=== PATIENT | female | born 1985 | race Caucasian/White ===

== ENCOUNTER 2021-07-06 10:24 | Inpatient (IN) | payer OTHER ==
[~2021-07-06] VITALS: Ht 139.7 cm; Wt 58.5 kg
--- NOTE | ~2021-07-06 | EMS ---
[address] [address] EMS Patient Care Report Name: PATO NATHAN Room #: PRE M.R.#: [id number] Admission: Attend Phys: Discharge: Date of : 87 Report #: [id number] THIS REPORT FOR: //name// Report Transmitted: 07/06/2021 09:59 EMS Care Summary [place], [place]/[facility] Incident [id number] @ 07/06/2021 09:53 Incident Location [address] [place] [address] Patient PATO JOEL Female, 36 Years 1985 Patient Address [address] [place] [address] Patient History None Reported, Patient Allergies No known allergies, Patient Medications None Reported, Chief Complaint SOB Disposition Transported No Lights/[place] Dispatch Reason Breathing Problem Transported To [facility] Narrative M528 dispatched for a 36 year old female conscious and breathing having SOB. 28 responds to the scene and finds the patient with P42 personnel. Patient acknowledges EMS presence is GCS 15, AAOx4. Patient has a patent airway and is having SOB with speaking 2 - 3 word sentences, Skin is pink warm and dry. [facility] [address] [place] [address] EMS Patient Care Report Name: PATO NATHAN Room #: PRE Brianna#: [id number] Admission: Attend Phys: Discharge: Date of : 87 Report #: [id number] Patient confirms that she has been exposed to COIVD19 and that her has been home sick for the past week. Patient is placed on the stretcher in the fowlers position and secured using seatbelts and rails. Patient is placed on Oxygen via NRB at 12LPM and patient is placed on the monitor to obtain VS. Once inside the ambulance transport is initiated to [facility]. IV access is established in the left antecubital using a 20G IV and secured with a venigard. 10 ML NS Is flushed. Assessment conducted. Patient is GCS 15, AAOx4. Patient has a patent airway is breathing adequately with strong regular radial pulses. Skin is pink warm and dry. HEENT are WNL. Pupils are PERRL. Trachea is midline with no JVD noted. Chest wall is stable and intact with symmetrical rise and fall. Lung sounds are noted to be diminished in the upper lobes with mild wheezes. Abdomen is soft and nontender with no distention or rigidity noted. Pelvis is stable and intact.CMSX4 present. Patient advises that the Oxygen is helping. Arrival at the receiving facility patient condition is unchanged and stable. Patient is offloaded and taken to ED room 1. RN is given report and transfer of care is completed. Signatures are obtained and M528 returns to service after [place]. Initial Vitals @10:13P: 68,R: 20,BP: 92/57,Pain: 0/10,GCS: 15,CO: 1,SpO2: 100,Revised Trauma: 12, @10:06P: 91,R: 22,BP: 93/56,Pain: 0/10,GCS: 15,CO: 2,SpO2: 88,Revised Trauma: 12, Assessments @10:04MENTAL:No Abnormalities,SKIN:No Abnormalities,HEENT:Head/Face: No Abnormalities,Eyes: No Abnormalities,Neck/Airway: No Abnormalities,LUNG SOUNDS:General: No Abnormalities,Left Upper: No Abnormalities,Right Upper: No Abnormalities,Left Lower: No Abnormalities,Right Lower: No Abnormalities,ABDOMEN:General: No Abnormalities,Left Upper: No Abnormalities,Right Upper: No Abnormalities,Left Lower: No Abnormalities,Right Lower: No Abnormalities,PELVIS//GI:No Abnormalities,EXTREMITIES:Left Arm: No Abnormalities,Right Arm: No Abnormalities,Left Leg: No Abnormalities,Right Leg: No Abnormalities,PULSE:Radial: 2+ Normal,NEURO:No Abnormalities, Impression COVID-19 - Exposure to confirmed patient Procedures @10:08 Oxygen FlowRate: 12 Device: Non Re-breather Mask (NRB) Response: UnchangedSucceeded @10:10 IV Therapy - Saline Lock 10cc (20 ga) Site: Antecubital-Left Response: UnchangedSucceeded [address] [address] EMS Patient Care Report Name: PATO NATHAN Room #: PRE M.R.#: [id number] Admission: Attend Phys: Discharge: Date of : 87 Report #: [id number] @10:04 ALS Assessment Response: UnchangedSucceeded Timeline 09:51,Call Received 09:51,Dispatch Notified 09:53,Dispatched 09:54,En Route 10:02,On Scene 10:04,At Patient 10:04,ALS Assessment,Response: UnchangedSucceeded, 10:06,BP: 93/56 M,PULSE: 91,RR: 22 R,SPO2: 88 Ox,ETCO2: ,BG: ,PAIN: 0,GCS: 15, 10:08,Oxygen FlowRate: 12 Device: Non Re-breather Mask (NRB) Response: UnchangedSucceeded, 10:10,Depart Scene 10:10,IV Therapy - Saline Lock 10cc 20 ga Site: Antecubital-Left,Response: UnchangedSucceeded, 10:13,BP: 92/57 M,PULSE: 68,RR: 20 R,SPO2: 100 Ox,ETCO2: ,BG: ,PAIN: 0,GCS: 15, 10:19,At Destination 10:37,Call Closed Disclaimer v1.1 Copyright 2020 [employer] This EMS Care Summary contains data elements from the applicable legal record (which may be displayed differently). It is designed to provide pertinent information for the following purposes: continuity of care, clinical quality, and state data reporting. The complete legal record is available to ED staff and administrators of the receiving hospital in [employer]'s Patient Tracker. All data is provided "as is."
[2021-07-06 10:25] VITALS: BP 90/55
[2021-07-06 10:49] LABS: ABSOLUTE NEUTROPHILS 2.9 thou/uL (1.4-8.2); BASOPHILS 0.2 % (0.0-2.0); EOSINOPHILS 0.6 % (0.0-3.0); HEMATOCRIT 32.2 % (37.0-47.0); HEMOGLOBIN 10.4 gm/dL (12.0-15.0); LYMPHOCYTES 20.3 % (24.0-44.0); MCH 21.5 pg (26.0-34.0); MCHC 32.2 g/dL (28.0-37.0); MCV 66.9 fL (80.0-100.0); MONOCYTES 8.3 % (1.0-8.0); PLATELET COUNT 244 thou/uL (150-400); POLYS 70.6 % (36.0-66.0); RBC 4.81 mil/uL (4.20-5.00); RDW 19.2 % (10.5-14.5)
[2021-07-06 11:33] LABS: ANISOCYTOSIS 2+; MICROCYTES 2+; OVALOCYTES 1+
[2021-07-06 11:34] LABS: HYPOCHROMASIA 2+
[2021-07-06 11:36] LABS: CALCIUM 8.2 mg/dL (8.5-10.1); CREATININE 0.5 mg/dL (0.6-1.0); POTASSIUM 3.4 mmol/L (3.5-5.1)
[2021-07-06 11:43] LABS: ALBUMIN 3.1 g/dL (3.4-5.0); MAGNESIUM 2.5 mg/dL (1.8-2.4); TOTAL BILIRUBIN 0.2 mg/dL (0.2-1.0); TOTAL PROTEIN 7.1 g/dL (6.4-8.2)
--- NOTE | 2021-07-06 15:41 | EKG ---
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: SOHEILA : 1985 Requested By: Chandana Saha Order Number: [id number] : Micah Hernandez Measurements Intervals [place] Rate: 70 P: 10 MT: 116 QRS: 27 QRSD: 66 T: 14 QT: 399 QTc: 431 Interpretive Statements Sinus rhythm Borderline short MT interval Baseline wander in lead(s) V3 No previous ECG available for comparison Electronically Signed On 07-06-2021 15:40:56 [employer]ODUCTION CONTROL PLANNER by Micah Hernandez [email or web address] <ELECTRONICALLY SIGNED> By: Micah Hernandez MD, [facility] 07/06/21 1540 1028 1028 Micah Hernandez MD, FACC /EPI
[2021-07-06 17:10] LABS: URINE BILIRUBIN NEGATIVE (Negative); URINE BLOOD 2+ (Negative); URINE CLARITY CLEAR; URINE COLOR YELLOW; URINE GLUCOSE-RANDOM* NEGATIVE (Negative); URINE KETONES 1+ (Negative); URINE LEUKOCYTES-REFLEX NEGATIVE (Negative); URINE PROTEIN (DIPSTICK) TRACE (Negative)
[2021-07-06 17:22] LABS: URINE NITRITE-REFLEX POSITIVE (Negative)
[2021-07-06 17:23] LABS: SQUAMOUS 4-10 Moderate /LPF (0-3)
[2021-07-06 17:24] LABS: BACTERIA-REFLEX 1-9 Few /HPF (None Seen); CASTS None Seen /LPF (None Seen); CRYSTALS None Seen /LPF (None Seen); URINE RBC 1-2 Rare /HPF (NONE SEEN); URINE WBC-REFLEX 0-5 Rare /HPF (0-5)
[2021-07-06 18:02] VITALS: BP 91/59
[2021-07-06 18:25] VITALS: BP 132/81
[2021-07-06 18:42] VITALS: BP 104/68
--- NOTE | 2021-07-06 23:57 | NUR ---
ADMISSION QUESTIONS COMPLETED. PT SPEAKS SOME KINYARWANDA. [employer] TRANSLATE UTILIZED FOR HELP WITH COMMUNICATION. PT STATED THAT HER LAST PERIOD WAS 2 MONTHS AGO, SHE TESTED HCG POSITIVE. NOTIFIED LUCIA, HE ORDERED A ULTRASOUND. NO BLEEDING OR UNEXPECTED FINDINGS. DR SALMERON CONSULTED.
[2021-07-07] VITALS (7 sets, daily range): BP systolic 86–104; BP diastolic 50–64
[2021-07-07 06:39] LABS: ABSOLUTE NEUTROPHILS 2.8 thou/uL (1.4-8.2); BASOPHILS 0.3 % (0.0-2.0); HEMATOCRIT 31.5 % (37.0-47.0); LYMPHOCYTES 16.5 % (24.0-44.0); MCH 21.5 pg (26.0-34.0); MCHC 31.8 g/dL (28.0-37.0); MCV 67.5 fL (80.0-100.0); MONOCYTES 11.1 % (1.0-8.0); PLATELET COUNT 274 thou/uL (150-400); POLYS 72.1 % (36.0-66.0); RBC 4.66 mil/uL (4.20-5.00); RDW 19.9 % (10.5-14.5); WBC 3.9 thou/uL (4.0-11.0)
[2021-07-07 07:00] LABS: D-DIMER 0.81 ug/mLFEU (0.19-0.50); INR 0.95; PROTIME 10.4 Seconds (10.5-12.1)
[2021-07-07 07:12] LABS: ALBUMIN 2.3 g/dL (3.4-5.0); ANION GAP 11 mmol/L (7-16); BUN 12 mg/dL (7-18); CALCIUM 7.1 mg/dL (8.5-10.1); CHLORIDE 110 mmol/L (98-107); CO2 20 mmol/L (21-32); CREATININE 0.5 mg/dL (0.6-1.0); DIRECT BILIRUBIN < 0.1 mg/dL (<0.1-0.2); GLUCOSE 108 mg/dL (74-106); PHOSPHORUS 2.5 mg/dL (2.5-4.9); POTASSIUM 3.8 mmol/L (3.5-5.1); SGOT 23 U/L (15-37); SGPT 19 U/L (30-65); SODIUM 141 mmol/L (136-145); TOTAL BILIRUBIN 0.1 mg/dL (0.2-1.0); TOTAL PROTEIN 5.9 g/dL (6.4-8.2)
--- NOTE | 2021-07-07 19:30 | NUR ---
ASSUMED PATIENT CARE AT 0700. A/O X4. GENERLIXED WEAKNESS. ON 2L/NC. BP ON LOW SIDE. WILL KEEPMONITOR.
[2021-07-08 02:06] LABS: HIV ANTIBODY Non Reactive (Non Reactive)
[2021-07-08 04:49] VITALS: BP 93/56
[2021-07-08 06:17] LABS: ALBUMIN 2.3 g/dL (3.4-5.0); ANION GAP 12 mmol/L (7-16); BUN 10 mg/dL (7-18); CALCIUM 7.6 mg/dL (8.5-10.1); CHLORIDE 109 mmol/L (98-107); CO2 20 mmol/L (21-32); CREATININE 0.5 mg/dL (0.6-1.0); DIRECT BILIRUBIN < 0.1 mg/dL (<0.1-0.2); GLUCOSE 89 mg/dL (74-106); PHOSPHORUS 2.8 mg/dL (2.5-4.9); POTASSIUM 3.4 mmol/L (3.5-5.1); SGOT 29 U/L (15-37); SGPT 28 U/L (30-65); SODIUM 141 mmol/L (136-145); TOTAL BILIRUBIN 0.1 mg/dL (0.2-1.0); TOTAL PROTEIN 5.5 g/dL (6.4-8.2)
--- NOTE | 2021-07-08 06:22 | NUR ---
Pt. slept intermittently during the night. She gets anxious and tachypneic at times. Emotional support given and encouraged to take a depe breath and relax. Also encouraged to use IS. O2 at 2L/NC , shortness of breath with exertion. Cont. on enhanced precaution, afebrile. Voiding per commode and had bm this am.
[2021-07-08 07:49] VITALS: BP 90/51
[2021-07-08 11:38] VITALS: BP 89/54
--- NOTE | 2021-07-08 15:36 | NUR ---
INITIAL ASSESSMENT: HERMAN reviewed chart and spoke with nursing and attending physician. Pt was admitted from home due to COVID pneumonia. Pt is afebrile and on 2L of O2. Pt is on IV abx and Remdesivir. Pt is not able to have steroids due to being in her first trimester. HERMAN has placed several calls to pt's room. No answer. Pt's nurse states pt does speak Turkish and will move phone closer to pt. HERMAN placed another call to pt's room. No answer. Per chart, pt lives at home with her spouse. Pt does not currently have health insurance. HERMAN discussed case with [employer], who states pt and baby will qualify, even though pt is not a legal resident. HERMAN is following to assist as needed with discharge planning.
--- NOTE | 2021-07-08 19:34 | NUR ---
RN ASSUMED PT'S CARE AT 0700-1900PM, PT IS A&OX4, PT IS OFF O2 AND SHE IS ON ROOM AIR , PT'S SOB AND VS ARE STABLE AT DAY SHIFT, PT IS CONTINUING IV ABX AND COVID MEDICATIONS.
[2021-07-08 19:42] VITALS: BP 89/48
[2021-07-08 23:48] VITALS: BP 94/61
--- NOTE | 2021-07-09 03:57 | NUR ---
PT ALERT & ORIENTED X 4. CURRENTLY ON RA. SKIN C/D/I. PT UP AD PETER. NO C/O OF PAIN, NAUSEA/VOMITTING OVERNIGHT. PT HAS SOFT BLOOD PRESSURE. RECEIVED AND IMPLEMENTED ORDERS FOR 500ML/HR NS BOLUS. BP IS BACK TO BASELINE. POSSIBLE D/C TODAY.
[2021-07-09 04:13] VITALS: BP 102/57
[2021-07-09 06:37] LABS: ALBUMIN 2.5 g/dL (3.4-5.0); ANION GAP 11 mmol/L (7-16); BUN 8 mg/dL (7-18); CALCIUM 7.9 mg/dL (8.5-10.1); CHLORIDE 107 mmol/L (98-107); CO2 21 mmol/L (21-32); CREATININE 0.4 mg/dL (0.6-1.0); DIRECT BILIRUBIN < 0.1 mg/dL (<0.1-0.2); GLUCOSE 87 mg/dL (74-106); PHOSPHORUS 3.5 mg/dL (2.5-4.9); POTASSIUM 3.5 mmol/L (3.5-5.1); SGOT 42 U/L (15-37); SGPT 53 U/L (30-65); SODIUM 139 mmol/L (136-145); TOTAL BILIRUBIN 0.1 mg/dL (0.2-1.0); TOTAL PROTEIN 5.8 g/dL (6.4-8.2)
[2021-07-09 08:02] VITALS: BP 105/59
[2021-07-09 11:48] VITALS: BP 101/65
[2021-07-09 16:05] VITALS: BP 106/55
[2021-07-09 20:11] VITALS: BP 105/60
[2021-07-10 04:54] VITALS: BP 97/57
[2021-07-10 05:27] LABS: ALBUMIN 2.8 g/dL (3.4-5.0); ANION GAP 12 mmol/L (7-16); BUN 8 mg/dL (7-18); CALCIUM 8.2 mg/dL (8.5-10.1); CHLORIDE 103 mmol/L (98-107); CO2 22 mmol/L (21-32); CREATININE 0.5 mg/dL (0.6-1.0); DIRECT BILIRUBIN < 0.1 mg/dL (<0.1-0.2); GLUCOSE 87 mg/dL (74-106); PHOSPHORUS 3.9 mg/dL (2.6-4.7); POTASSIUM 3.3 mmol/L (3.5-5.1); SGOT 67 U/L (15-37); SGPT 79 U/L (14-59); SODIUM 137 mmol/L (136-145); TOTAL BILIRUBIN 0.2 mg/dL (0.2-1.0); TOTAL PROTEIN 6.1 g/dL (6.4-8.2)
[2021-07-10 08:14] VITALS: BP 84/45
[2021-07-10 11:36] VITALS: BP 95/62
[2021-07-10] MEDS ORDERED: ZINC SULFATE50 MG PO (13:02)
[2021-07-10] MEDS ORDERED: VITAMIN D325 MC2 PO (13:02)
[2021-07-10] MEDS ORDERED: VITAMIN C1000 MG PO (13:02)
[2021-07-10] MEDS ORDERED: PRENATAL PO (13:02)
[2021-07-10 13:51] VITALS: BP 95/62
--- NOTE | 2021-07-10 16:12 | NUR ---
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
[2021-07-11 09:10] LABS: T-SPOT.TB Negative
== END 2021-07-10 14:58 | disposition home or self-care (01) | DRG 177 ==
LOC: ER 10:24 → EROBS 13:46 → 3W 18:21
PROVIDERS: Emergency Medicine; Specialist; ADMIT Hospitalist; ATTEND Hospitalist
PROC: XW033E5 Introduction of Remdesivir Anti-infective into Peripheral Vein, Percutaneous Approach, New Technology Group 5 (ICD-10-PCS; principal; 2021-07-06)
DX: U07.1 COVID-19 (principal); J96.01 Acute respiratory failure with hypoxia; J12.82 Pneumonia due to coronavirus disease 2019; E87.2 Acidosis; E87.6 Hypokalemia; D64.89 Other specified anemias; E87.8 Other disorders of electrolyte and fluid balance, not elsewhere classified; Z33.1 Pregnant state, incidental
CPT/HCPCS: 10879